=== PATIENT | male | born 1995 | race African-American/Black ===

== ENCOUNTER 2016-11-25 20:32 | Inpatient (IN) | payer SELFPAY ==
[~2016-11-25] VITALS: Ht 182.9 cm; Wt 98.3 kg
[2016-11-25 21:42] LABS: HEMATOCRIT 49.2 % (38.0-50.0); MCH 28.1 PG (29.0-34.0); MCHC 32.9 G/DL (30.0-36.0); MCV 85.3 FL (86-99); PLATELET COUNT 407 K/uL (156-360); RBC DIS.WIDTH-CV 12.6 % (11.8-14.6); RBC DIS.WIDTH-SD 39.1 % (39-53); RED BLOOD COUNT 5.77 M/uL (4.00-5.50); WHITE BLOOD COUNT 14.7 K/uL (4.1-10.2)
[2016-11-25 21:53] LABS: CHLORIDE 98 mEq/L (99-109); POTASSIUM 4.5 mEq/L (3.7-5.4); SODIUM 137 mEq/L (136-147)
[2016-11-25 21:54] LABS: GLUCOSE 113 mg/dL (70-99)
[2016-11-25 21:56] LABS: ANION GAP 15 MEQ/L (2-14)
[2016-11-25 21:58] LABS: GFR ESTIMATE (CALCULATED) 41 mL/min/
[2016-11-25 21:59] LABS: UREA NITROGEN (BUN) 16 mg/dL (9-23)
[2016-11-25 22:13] LABS: CREATINE KINASE 3435 IU/L (1-294)
[2016-11-25] MEDS ORDERED: BENADRYL25 MG PO (22:42)
[2016-11-25 23:04] LABS: ADD MIUA? YES; BILIRUBIN NEGATIVE; BLOOD NEGATIVE; COLOR AMBER ((YELLOW)); GLUCOSE (STRIP) 50; KETONES 5; LEUKOCYTES SMALL; NITRITE NEGATIVE; PROTEIN (STRIP) >=500; SPECIFIC GRAVITY 1.026 (1.000-1.030); UROBILINOGEN 0.2 MG/DL (0.2-1.0)
[2016-11-25] MEDS ORDERED: VISINE A.C300 DROP/1 BOTH EYES (23:11)
[2016-11-25 23:19] LABS: BACTERIA NONE SEEN /HPF; EPITHELIAL CELLS RARE /HPF; HYALINE CASTS 40-50 /LPF; MUCUS 1+ /LPF; RED BLOOD CELLS 15-20 /HPF (0-5); WHITE BLOOD CELLS 20-30 /HPF (0-5)
[2016-11-25 23:38] LABS: TOTAL BILIRUBIN 0.3 mg/dL (0.0-1.0)
[2016-11-25 23:39] LABS: ALKALINE PHOSPHATASE 61 IU/L (3-129); SERUM ETHYL ALCOHOL < 10 mg/dL
[2016-11-25 23:42] LABS: TROP-I INTERPRETATION NEGATIVE; TROPONIN-I 0.16 ng/mL (0.0-0.30)
[2016-11-26 06:07] LABS: HEMATOCRIT 42.3 % (38.0-50.0); MCH 28.1 PG (29.0-34.0); MCHC 32.6 G/DL (30.0-36.0); MCV 86.2 FL (86-99); PLATELET COUNT 336 K/uL (156-360); RBC DIS.WIDTH-CV 12.9 % (11.8-14.6); RBC DIS.WIDTH-SD 40.4 % (39-53); RED BLOOD COUNT 4.91 M/uL (4.00-5.50); WHITE BLOOD COUNT 11.1 K/uL (4.1-10.2)
[2016-11-26 06:20] LABS: ALKALINE PHOSPHATASE 47 IU/L (3-129); ANION GAP 9 MEQ/L (2-14); CHLORIDE 104 MEQ/L (99-109); GLOBULINS 2.4 G/DL (2.3-3.5); GLUCOSE 99 mg/dL (70-99); POTASSIUM 3.8 MEQ/L (3.7-5.4); SAMPLE HEMOLYSIS CHECK 0; SAMPLE ICTERIC CHECK 0; SAMPLE LIPEMIA CHECK 0; SODIUM 140 MEQ/L (136-147); TOTAL BILIRUBIN 0.4 MG/DL (0.0-1.0); UREA NITROGEN (BUN) 19 mg/dL (9-23)
[2016-11-26 06:35] LABS: GFR ESTIMATE (CALCULATED) > 59 mL/min/
[2016-11-26 06:57] LABS: TROP-I INTERPRETATION NEGATIVE; TROPONIN-I 0.08 ng/mL (0.0-0.30)
[2016-11-26 08:19] LABS: AMPHETAMINES QUANT VALUE 0 NG/ML; BARBITUATES QUANT VALUE 0 NG/ML; BENZODIAZEPINES QUANT VALUE 0 NG/ML; BENZODIAZEPINES, URINE SCREEN Negative (200 ng/mL); OPIATES QUANTITATIVE VALUE 0 NG/ML; PHENCYCLIDINE QUANT VALUE 0 NG/ML
[2016-11-26 08:30] LABS: URINE TOTAL PROTEIN 205 MG/DL (0-10)
[2016-11-26 09:04] VITALS: BP 133/77
[2016-11-26 11:36] LABS: TROP-I INTERPRETATION NEGATIVE; TROPONIN-I 0.05 ng/mL (0.0-0.30)
[2016-11-26 16:53] VITALS: BP 129/63
[2016-11-26 18:13] LABS: ADD MIUA? NO; BILIRUBIN NEGATIVE; BLOOD NEGATIVE; COLOR YELLOW ((YELLOW)); GLUCOSE (STRIP) NEGATIVE; KETONES NEGATIVE; LEUKOCYTES NEGATIVE; NITRITE NEGATIVE; PROTEIN (STRIP) NEGATIVE; SPECIFIC GRAVITY 1.014 (1.000-1.030); UCUL ADDED? NO; UROBILINOGEN 0.2 MG/DL (0.2-1.0)
[2016-11-26 18:17] LABS: EOSINOPHIL (%) 0.5 % (0-5); HEMATOCRIT 42.7 % (38.0-50.0); IMMATURE GRANULOCYTE (%) 0.3 % (0.0-0.7); INSTRUMENT ABS NEUTROPHIL CT 4.9 K/uL; LYMPHOCYTE COUNT 2.3 K/uL (1.0-2.8); MCH 28.1 PG (29.0-34.0); MCHC 32.6 G/DL (30.0-36.0); MCV 86.4 FL (86-99); MEAN PLAT.VOLUME 9.9 uM^3 (9.0-12.4); MONOCYTE (%) 9.1 % (3-12); MONOCYTE COUNT 0.7 K/uL (0-0.8); NEUTROPHIL (%) 61.3 % (45-76); NEUTROPHIL COUNT 4.9 K/uL (1.8-6.4); PLATELET COUNT 326 K/uL (156-360); RED BLOOD COUNT 4.94 M/uL (4.00-5.50)
[2016-11-26 18:54] LABS: ANION GAP 7 MEQ/L (2-14); CHLORIDE 104 MEQ/L (99-109); GFR ESTIMATE (CALCULATED) > 59 mL/min/; GLUCOSE 97 mg/dL (70-99); POTASSIUM 4.2 MEQ/L (3.7-5.4); SAMPLE HEMOLYSIS CHECK 0; SAMPLE ICTERIC CHECK 0; SAMPLE LIPEMIA CHECK 0; SODIUM 137 MEQ/L (136-147); UREA NITROGEN (BUN) 14 mg/dL (9-23)
[2016-11-26 19:25] LABS: CREATINE KINASE 5549 IU/L (1-294)
[2016-11-26 20:00] VITALS: BP 138/69
[2016-11-27 11:04] LABS: URINE GEL NUMBER 76-2
[2016-11-27 11:12] LABS: ALBUMIN PERCENT 66.6 %; ALPHA-1 GLOBULIN 0.16 G/DL (0.15-0.40); ALPHA-1 PERCENT 2.4 %; ALPHA-2 GLOBULIN 0.63 G/DL (0.45-0.85); ALPHA-2 PERCENT 9.6 %; BETA PERCENT 10.3 %; GAMMA PERCENT 11.1 %; INTERPRETATION: Normal study.; SERUM GEL NO. 76-6
== END 2016-11-26 21:19 | disposition left against medical advice (07) | DRG 558 ==
LOC: EME 20:32 → 4SOUTH 22:39 → EDOF 22:39 → 4SOUTH 11-26 08:54
PROVIDERS: Hospitalist; Internal Medicine; Physician Assistant
DX: M62.82 Rhabdomyolysis (principal); N17.9 Acute kidney failure, unspecified; E83.52 Hypercalcemia; D72.829 Elevated white blood cell count, unspecified; F12.90 Cannabis use, unspecified, uncomplicated
CPT/HCPCS: 71010; 80048; 80048 91; 80053; 80306 90; 81003; 82550; 83735; 84100; 84165; 84166; 84443; 84484; 85025; 85027; 93005; 99281; 99285; G0480; J1644; J7030